=== PATIENT | male | born 1970 | race Caucasian/White ===

== ENCOUNTER → 2016-04-19 | Outpatient (CLI) | payer OTHER ==
--- NOTE | ~2016-04-19 | CR126 ---
[facility]. [facility] A Service of [facility] & [facility] RADIOLOGY TEXT RESULTS PATIENT: MILDRED CHAMBERLAIN LOCATION: [facility] : 72 UNIT #: [id number] AGE: [address]: Ryan Schreiber MD SEX: M ORDER DR: [id number] [place] [id number] O MR#: [id number] Acc #: [id number] NAME: MILDRED CHAMBERLAIN : 1970 SEX: M STUDY DATE/TIME: 04/19/2016 11:04 UNIT: [facility] ROOM: STUDY DESCRIPTION: CR Foot Complete Min 3 View Lt Attending Physician: Ryan Schreiber M.D. Referring Physician: Ryan Schreiber M.D. Ordering Physician: Ryan Schreiber M.D. Primary Care Physician: Ryan Schreiber M.D. MEDICAL IMAGING REPORT This report is preliminary unless electronic signature is present. EXAM Left foot 3 views HISTORY Bilateral foot pain for 3 months. States works 12-hour shifts. Works on concrete. FINDINGS 3 views of the left foot demonstrates mild hallux valgus deformity. Hammertoe deformity noted at the DIP joint second toe. No fracture or dislocation. Bone mineralization appears normal. Soft tissues unremarkable. Hallux sesamoids appear normal. IMPRESSION 1. Mild hallux valgus deformity. 2. Flexion deformity DIP joint second toe. Dictated by... Porsche Duenas M.D. THIS IS AN ELECTRONICALLY VERIFIED REPORT Porsche Duenas M.D. at 04/22/2016 7:41 AM QUENTIN/rafael TD: 04/20/2016 07:46 JOB #: [id number] MEDICAL IMAGING REPORT
--- NOTE | ~2016-04-19 | CR127 ---
[facility]. [facility] A Service of [facility] & [facility] RADIOLOGY TEXT RESULTS PATIENT: MILDRED CHAMBERLAIN LOCATION: [facility] : 72 UNIT #: [id number] AGE: [address]: Ryan Schreiber MD SEX: M ORDER DR: [id number] [place] [id number] O MR#: [id number] Acc #: [id number] NAME: MILDRED CHAMBERLAIN : 1970 SEX: M STUDY DATE/TIME: 04/19/2016 11:04 UNIT: [facility] ROOM: STUDY DESCRIPTION: CR Foot Complete Min 3 View Rt Attending Physician: Ryan Schreiber M.D. Referring Physician: Ryan Schreiber M.D. Ordering Physician: Ryan Schreiber M.D. Primary Care Physician: Ryan Schreiber M.D. MEDICAL IMAGING REPORT This report is preliminary unless electronic signature is present. EXAM Right foot 3 views HISTORY Bilateral foot pain for 3 months. 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 Pain and swelling feet. FINDINGS Review of the right foot demonstrates arthritic changes at the DIP joint of the second toe with plantar flexion at the DIP joint. No fracture identified. Bone mineralization appears normal. Soft tissues are unremarkable. 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 Dictated by... Porsche Duenas M.D. THIS IS AN ELECTRONICALLY VERIFIED REPORT Porsche Duenas M.D. at 04/22/2016 7:41 AM QUENTIN/rafael TD: 04/20/2016 08:12 JOB #: [id number] MEDICAL IMAGING REPORT
== END | disposition home or self-care (01) ==
LOC: SRAD 10:59
DX: M79.671 Pain in right foot (principal); M79.672 Pain in left foot; M20.12 Hallux valgus (acquired), left foot; M21.272 Flexion deformity, left ankle and toes; M21.271 Flexion deformity, right ankle and toes
CPT/HCPCS: 73630